=== PATIENT | male | born 1995 | race Caucasian/White ===

== ENCOUNTER 2017-12-07 19:19 | Emergency (ER) | payer OTHER ==
--- NOTE | 2017-12-07 19:22 | ER Report ---
History and Physical Time Seen By MD: 19:22 HPI/ROS CHIEF COMPLAINT: Rectal pain HISTORY OF PRESENT ILLNESS: Patient is a 22-year-old male here with complaints of rectal pain and a "bump" near his rectum for the past week and a half progressively coming more painful and larger. Patient denies fevers, chills, abdominal pain, discharge. Patient was concerned that he might have an abscess however he reports never having rectal pain in the past nor infections. Patient is hemodynamically stable, afebrile at time of evaluation. REVIEW OF SYSTEMS: Constitutional: No fever, no chills. Gastrointestinal: No abdominal pain, no vomiting. Genitourinary: No hematuria. Rectal: + perirectal pain and swelling Musculoskeletal: No back pain. Skin: No rashes. Neurological: No focal deficits Allergies: Coded Allergies: No Known Drug Allergies (Unverified , 12/07/17) Home Meds Active Scripts Tramadol Hcl (TRAMADOL HCL) 50 Mg Tablet, 50 MG PO Q6H PRN for PAIN, #12 TAB 0 Refills Prov:ARELY NOGUEIRA DO 12/07/17 Reported Medications Amphet Asp/Amphet/D-Amphet (ADDERALL 10 MG TABLET) 10 Mg Tablet, 10 MG PO 12/07/17 Constitutional Vital Sign - Last 24 Hours 12/07/17 12/07/17 12/07/17 12/07/17 19:22 19:22 19:34 19:49 Temp 98.5 Pulse 65 69 65 Resp 14 B/P (MAP) 142/91 142/91 (108) Pulse Ox 97 92 97 O2 Delivery Room Air 12/07/17 12/07/17 12/07/17 20:04 20:19 20:34 Pulse 62 60 ??? B/P (MAP) 129/86 (100) Pulse Ox 94 94 Physical Exam General Appearance: The patient is alert, has no immediate need for airway protection and no signs of toxicity. Anxious appearing, moderate distress secondary to discomfort Gastrointestinal: Abdomen is soft and non tender, no masses, bowel sounds normal, + ari rectal partially thrombosed external hemorrhoid Neurological: No focal deficits Skin: Warm and dry, no rashes. Musculoskeletal: Extremities are nontender, nonswollen and have full range of motion. DIFFERENTIAL DIAGNOSIS: After history and physical exam differential diagnosis was considered for thrombosed external hemorrhoid, anal fissure, perirectal abscess, wart Medical Decision Making ED Course/Re-evaluation ED Course Patient is a 22-year-old male here with a perirectal abscess at approximately 7 to 9 o'clock position. The hemorrhoid is small approximately 1/2-1 cm in size, bluish in appearance, partially firm to the touch. Patient has tender on exam and reports that the swelling and pain has increased over the past week. Denies prior history of infections or hemorrhoids in the rectal area nor a history of gastrointestinal disease. The hemorrhoid was injected with approximately 2 mL of 1% lidocaine with epinephrine and incised with an 11 blade after which time the hemorrhoid was expressed. Patient was advised to pursue sitz baths, take stool softeners, apply topical analgesics and anesthetics as needed. Patient was advised to follow-up with his PCP in the next week and return if he develops signs of infection. Procedure A thrombosed external hemorrhoid was identified at the 7 to 9 o'clock position along the perirectal area. Site was cleaned using Betadine wipes. 3 mL of 1% lidocaine with epinephrine was administered in 2 the thrombosed hemorrhoid and a small elliptical incision using an 11 blade was made and a small semi-firm clot was expressed from the site. Patient tolerated the procedure well, sterile gauze was applied to the area. Decision to Disposition Date: Dec 07, 2017 Decision to Disposition Time: 20:13 Depart Departure Latest Vital Signs Vital Signs Date Time Temp Pulse Resp B/P (MAP) Pulse Ox O2 Delivery O2 Flow Rate FiO2 12/07/17 20:34 ??? 12/07/17 20:19 129/86 (100) 94 12/07/17 19:22 98.5 14 Room Air Impression: Primary Impression: External hemorrhoid, thrombosed Condition: Improved Disposition: HOME OR SELF-CARE New Scripts Tramadol Hcl (TRAMADOL HCL) 50 Mg Tablet 50 MG PO Q6H PRN for PAIN, #12 TAB 0 Refills Prov: ARELY NOGUEIRA DO 12/07/17 Patient Instructions: Thrombosed Hemorrhoid (ED) Additional Instructions: Please use sitz baths for the next couple days for comfort and hygiene. You may take stool softeners for comfort as constipation may cause worsening pain. Please return if you develop fevers, worsening pain, increased bleeding. It is normal to bleed for the next day or two as an incision was made to evacuate the clot. You may apply [id number] numbing ointments to the site for comfort. ARELY NOGUEIRA DO Dec 07, 2017 19:22
[2017-12-07] MEDS ORDERED: DEXT10TA9 PO (19:25)
[2017-12-07] MEDS ORDERED: LIDO/EPI 1% MDV 1:100,000 20ML INFIL ONE (19:44)
[2017-12-07] MEDS ORDERED: traMADol 50 MG TAB TH 2 TAB/BOTTLE PO ONE (20:15)
[2017-12-07] MEDS ORDERED: TRAM-420 PO (20:16)
[2017-12-07 20:19] VITALS: BP 129/86
== END 2017-12-07 20:24 | disposition home or self-care (01) ==
LOC: ER 19:50
DX: K64.5 Perianal venous thrombosis (principal)
CPT/HCPCS: 99283